=== PATIENT | female | born 1980 | race Caucasian/White ===

== ENCOUNTER → 2024-09-29 | Outpatient (CLI) | payer OTHER ==
--- NOTE | 2024-09-29 12:58 | MM ---
Reason for Exam: Screening (asymptomatic). Last mammogram was performed 1 year(s) and 2 month(s) ago. Patient History: Menarche at age 10. First Full-Term at age 30. Late child-bearing (after 30). Perimenopausal. Risk Values: Atiya 5 year model risk: 1.2%. NCI Lifetime model risk: 12.8%. Prior Study Comparison: 05/24/2020 Bilateral Screening Mammogram, [facility]. 06/18/2021 Bilateral Screening Mammogram, [facility]. 07/13/2022 Bilateral Screening Mammogram, [facility]. 07/23/2023 Bilateral Screening Mammogram, [facility]. Tissue Density: The breasts are heterogeneously dense, which may obscure small masses. Findings: Analyzed By CAD. Asymmetry 4:00 anterior right breast appears more defined from older priors though fairly similar compared to the most recent prior. Further evaluation recommended. Other areas of asymmetric density are unchanged. Overall Assessment: Incomplete: need additional imaging evaluation, BI-RAD 0 Management: Special View Mammogram of the right breast. Diagnostic Breast Ultrasound of the right breast. [facility] will attempt to contact patient to return for supplemental views and ultrasound if indicated. [facility], , 09/29/2024 12:55 PM. Electronically signed and approved by: Mayelin Ceja M.D. Radiologist
== END | disposition home or self-care (01) ==
LOC: RADMAMWWP 10:07
PROVIDERS: ATTEND Family Medicine
DX: Z12.31 Encounter for screening mammogram for malignant neoplasm of breast (principal); R92.333 Mammographic heterogeneous density, bilateral breasts
CPT/HCPCS: 77067

== ENCOUNTER → 2024-10-19 | Outpatient (CLI) | payer OTHER ==
--- NOTE | 2024-10-19 08:15 | MM ---
Reason for Exam: Additional evaluation requested from abnormal screening. Last screening mammogram was performed less than 1 month ago. Patient History: Menarche at age 10. First Full-Term at age 30. Late child-bearing (after 30). Perimenopausal. Risk Values: Atiya 5 year model risk: 1.2%. NCI Lifetime model risk: 12.8%. Tissue Density: Right: The breasts are heterogeneously dense, which may obscure small masses. Findings: Analyzed By CAD. 8 mm area of nodular asymmetric at the 3 to 4:00 position density becomes less defined on both the lateral and spot 3-D MLO views. Incompletely disperses on cc view. This may represent a focal island of tissue given these findings. Ultrasound recommended. Overall Assessment: Incomplete: need additional imaging evaluation, BI-RAD 0 Management: Diagnostic Breast Ultrasound of the right breast. [facility], , 10/19/2024 8:12 AM. Electronically signed and approved by: Mayelin Ceja M.D. Radiologist
--- NOTE | 2024-10-19 09:09 | USB ---
Reason for Exam: Additional evaluation requested from abnormal screening. Patient History: Menarche at age 10. First Full-Term at age 30. Late child-bearing (after 30). Perimenopausal. Risk Values: Atiya 5 year model risk: 1.2%. NCI Lifetime model risk: 12.8%. Technique: Method: Targeted. Doppler: Color. Patient Position: Supine. Prior Study Comparison: 07/13/2022 Bilateral Screening Mammogram, [facility]. 07/23/2023 Bilateral Screening Mammogram, [facility]. 09/29/2024 Bilateral MG screening mammo w CAD, [facility]. Findings: The lower inner quadrant of the right breast, the axilla of the right breast and the retroareolar of the right breast were scanned. Targeted ultrasound medial aspect of the right breast 3:00 and 4:00 position including scanning of of the subareolar region and axilla. At the 3:00 position, 6 cm from the nipple, there is a vague hypoechoic area measuring 1.3 x 0.4 x 0.6 cm. Some portions show well-defined posterior wall, possible debris-filled cyst. Possible mammographic correlate. Six-month follow-up recommended. No other solid or cystic lesion or axillary lymphadenopathy. Overall Assessment: Probably benign, BI-RAD 3 Management: Diagnostic Mammogram of the right breast in 6 months. Diagnostic Breast Ultrasound of the right breast in 6 months. A clinical breast exam by your physician is recommended on an annual basis and results should be correlated with mammographic findings. This exam should not preclude additional follow-up of suspicious palpable abnormalities. Results were given to the patient verbally at the time of exam. [facility], , 10/19/2024 9:05 AM. Electronically signed and approved by: Mayelin Ceja M.D. Radiologist
== END | disposition home or self-care (01) ==
LOC: RADMAMWWP 07:45
PROVIDERS: ATTEND Family Medicine
DX: R92.8 Other abnormal and inconclusive findings on diagnostic imaging of breast (principal); R92.331 Mammographic heterogeneous density, right breast
CPT/HCPCS: 77061; 77065